=== PATIENT | male | born 1980 | race Caucasian/White ===

== ENCOUNTER 2022-01-20 16:03 | Emergency (ER) | payer MEDICAID ==
[~2022-01-20] VITALS: Ht 193 cm; Wt 108.0 kg
[2022-01-20] MEDS ORDERED: ABIL1TAB12 PO (16:22)
[2022-01-20] MEDS ORDERED: ADDE1TAB14 PO (16:22)
[2022-01-20] MEDS ORDERED: CLONI1TA PO (16:22)
[2022-01-20] MEDS ORDERED: PROZ40CA PO (16:22)
[2022-01-21] MEDS ORDERED: FLUoxetine 20MG CAP PO ONE (00:30)
[2022-01-21] MEDS ORDERED: ARIPiprazole 10 MG TAB PO ONE (00:30)
[2022-01-21] MEDS ORDERED: ADDERALL 5 MG TAB PO ONE ×2 (00:30→01:00)
[2022-01-21] MEDS ORDERED: cloNIDine 0.1MG TABLET PO ONE (00:30)
[2022-01-21] MEDS ORDERED: FLUO40CA PO (01:04)
[2022-01-21] MEDS ORDERED: CLONI1TA PO (01:04)
[2022-01-21] MEDS ORDERED: ADDE1TAB14 PO (01:04)
[2022-01-21] MEDS ORDERED: ABIL1TAB12 PO (01:04)
[2022-01-21] MEDS ORDERED: PRED20TA PO (01:08)
[2022-01-21 01:26] VITALS: BP 125/85
== END 2022-01-21 01:28 | disposition home or self-care (01) ==
LOC: M ED 16:03
DX: Z76.0 Encounter for issue of repeat prescription (principal); R21 Rash and other nonspecific skin eruption; F41.9 Anxiety disorder, unspecified; F32.A Depression, unspecified; F31.9 Bipolar disorder, unspecified; F90.9 Attention-deficit hyperactivity disorder, unspecified type; F43.10 Post-traumatic stress disorder, unspecified; F17.200 Nicotine dependence, unspecified, uncomplicated; Z86.73 Personal history of transient ischemic attack (TIA), and cerebral infarction without residual deficits; Z79.811 Long term (current) use of aromatase inhibitors; Z79.899 Other long term (current) drug therapy

== ENCOUNTER 2022-02-14 13:38 | Emergency (ER) | payer MEDICAID ==
[~2022-02-14] VITALS: Ht 193 cm; Wt 105.9 kg
[~2022-02-14 13:38] MED LIST: ABIL1TAB12 PO; ADDE1TAB14 PO; CLONI1TA PO; FLUO40CA PO; PRED20TA PO; PROZ40CA PO
[2022-02-14] MEDS ORDERED: MIRT-60 PO (13:46)
[2022-02-14] MEDS ORDERED: cloNIDine 0.1MG TABLET PO ONE (20:10)
[2022-02-14] MEDS ORDERED: ADDERALL 5 MG TAB PO ONE (20:10)
[2022-02-14] MEDS ORDERED: ARIPiprazole 10 MG TAB PO ONE (20:10)
[2022-02-14 20:23] VITALS: BP 128/84
[2022-02-14] MEDS ORDERED: CLONI1TA PO (20:24)
[2022-02-14] MEDS ORDERED: ADDE20CA3 PO (20:24)
[2022-02-14] MEDS ORDERED: MIRT1TAB16 PO (20:24)
[2022-02-14] MEDS ORDERED: ABIL1TAB12 PO (20:24)
[2022-02-14] MEDS ORDERED: FLUO40CA PO (20:24)
[2022-02-14 20:35] VITALS: BP 131/65
== END 2022-02-14 20:37 | disposition home or self-care (01) ==
LOC: M ED 13:38
DX: Z76.0 Encounter for issue of repeat prescription (principal); I10 Essential (primary) hypertension; F41.9 Anxiety disorder, unspecified; F31.9 Bipolar disorder, unspecified; Z86.73 Personal history of transient ischemic attack (TIA), and cerebral infarction without residual deficits; Z87.891 Personal history of nicotine dependence; Z79.811 Long term (current) use of aromatase inhibitors; Z79.83 Long term (current) use of bisphosphonates; Z79.899 Other long term (current) drug therapy

== ENCOUNTER 2022-02-25 00:22 | Emergency (ER) | payer MEDICAID, OTHER ==
[~2022-02-25 00:22] MED LIST changes: +ADDE20CA3 PO; +MIRT-60 PO; +MIRT1TAB16 PO
[2022-02-25 01:05] LABS: HEMATOCRIT 49.6 % (42.0-52.0); HEMOGLOBIN 17.3 g/dl (13.5-17.5); MEAN CORPUSCULAR HEMOGLOBIN 32.3 pg (27.0-33.0); MEAN CORPUSCULAR HGB CONC 34.9 g/dl (32.0-36.5); MEAN CORPUSCULAR VOLUME 92.7 fl (80.0-96.0); PLATELET COUNT, AUTOMATED 251 10^3/uL (150-450); RED BLOOD COUNT 5.35 10^6/uL (4.30-6.10); WHITE BLOOD COUNT 9.3 10^3/uL (4.0-10.0)
[2022-02-25 01:27] LABS: AMPHETAMINES LEVEL URINE NEGATIVE (NEGATIVE); BARBITURATES URINE NEGATIVE (NEGATIVE); BENZODIAZEPINES URINE NEGATIVE (NEGATIVE); COCAINE METABOLITE URINE NEGATIVE (NEGATIVE); METHADONE URINE NEGATIVE (NEGATIVE); OPIATES URINE NEGATIVE (NEGATIVE); PHENCYCLIDINE URINE NEGATIVE (NEGATIVE)
[2022-02-25 01:28] LABS: CANNABINOIDS URINE NEGATIVE (NEGATIVE)
[2022-02-25 01:29] LABS: ETHYL ALCOHOL (ETHANOL) 0.169 % (0.000-0.010)
[2022-02-25 01:30] LABS: BILIRUBIN,DIRECT < 0.1 MG/DL (<0.4)
[2022-02-25 01:31] LABS: ACETAMINOPHEN LEVEL < 2.0 UG/ML (10.0-20.0); ALBUMIN 3.7 G/DL (3.2-5.2); ALKALINE PHOSPHATASE 90 U/L (46-116); ALT/SGPT 39 U/L (7.0-40); AST/SGOT 20 U/L (<34); BILIRUBIN,TOTAL 0.2 MG/DL (0.3-1.2); BLOOD UREA NITROGEN 17 MG/DL (9-23); CALCIUM LEVEL 8.4 MG/DL (8.5-10.1); CARBON DIOXIDE LEVEL 24 MMOL/L (20-31); CHLORIDE LEVEL 107 MMOL/L (98-107); CREATININE FOR GFR 0.89 MG/DL (0.70-1.30); GLOMERULAR FILTRATION RATE > 60.0 (>60); GLUCOSE, FASTING 126 MG/DL (60-100); SALICYLATE LEVEL < 3.0 MG/DL (<30); SODIUM LEVEL 141 MMOL/L (136-145); TOTAL PROTEIN 6.9 G/DL (5.7-8.2)
[2022-02-25 01:38] LABS: THYROID STIMULATING HORMONE 1.753 uIU/ML (0.55-4.78)
[2022-02-25] MEDS ORDERED: CLONI1TA PO (07:21)
[2022-02-25] MEDS ORDERED: ADDE20CA3 PO (07:21)
[2022-02-25 07:43] VITALS: BP 118/80
== END 2022-02-25 07:49 | disposition home or self-care (01) ==
LOC: M ED 00:22
DX: F43.0 Acute stress reaction (principal); Z76.0 Encounter for issue of repeat prescription; F31.9 Bipolar disorder, unspecified; F43.10 Post-traumatic stress disorder, unspecified; F90.9 Attention-deficit hyperactivity disorder, unspecified type; F17.200 Nicotine dependence, unspecified, uncomplicated; F10.10 Alcohol abuse, uncomplicated; Z79.811 Long term (current) use of aromatase inhibitors; Z79.83 Long term (current) use of bisphosphonates; Z79.899 Other long term (current) drug therapy

== ENCOUNTER 2022-10-18 17:41 | Emergency (ER) | payer MEDICAID, OTHER ==
[~2022-10-18] VITALS: Ht 190.5 cm; Wt 106.8 kg
[2022-10-18] MEDS ORDERED: ONDANSETRON 4MG ORAL DISINTEGRATING TAB PO PRN (17:55)
[2022-10-18] MEDS ORDERED: NS 1,000 ML IV ONE (17:55)
[2022-10-18] MEDS ORDERED: LORazepam 2 MG TAB PO PRN (17:55)
[2022-10-18] MEDS ORDERED: THIAMINE 200MG 2ML VIAL IM ONE (17:55)
[2022-10-18 18:25] LABS: HEMATOCRIT 52.9 % (42.0-52.0); MEAN CORPUSCULAR HEMOGLOBIN 32.1 pg (27.0-33.0); MEAN CORPUSCULAR HGB CONC 35.9 g/dl (32.0-36.5); MEAN CORPUSCULAR VOLUME 89.4 fl (80.0-96.0); PLATELET COUNT, AUTOMATED 206 10^3/uL (150-450); RED BLOOD COUNT 5.92 10^6/uL (4.30-6.10); WHITE BLOOD COUNT 8.7 10^3/uL (4.0-10.0)
[2022-10-18 18:38] LABS: AMPHETAMINES LEVEL URINE NEGATIVE (NEGATIVE); BARBITURATES URINE NEGATIVE (NEGATIVE); CANNABINOIDS URINE NEGATIVE (NEGATIVE); COCAINE METABOLITE URINE NEGATIVE (NEGATIVE); METHADONE URINE NEGATIVE (NEGATIVE); PHENCYCLIDINE URINE NEGATIVE (NEGATIVE)
[2022-10-18 18:39] LABS: BENZODIAZEPINES URINE NEGATIVE (NEGATIVE); OPIATES URINE NEGATIVE (NEGATIVE)
[2022-10-18 18:42] LABS: ACETAMINOPHEN LEVEL < 2.0 UG/ML (10.0-20.0); ALBUMIN 4.1 G/DL (3.2-5.2); ALKALINE PHOSPHATASE 100 U/L (46-116); ALT/SGPT 42 U/L (7.0-40); AST/SGOT 26 U/L (<34); BILIRUBIN,DIRECT 0.1 MG/DL (<0.4); BILIRUBIN,TOTAL 0.5 MG/DL (0.3-1.2); BLOOD UREA NITROGEN 15 MG/DL (9-23); CALCIUM LEVEL 8.4 MG/DL (8.5-10.1); CARBON DIOXIDE LEVEL 24 MMOL/L (20-31); CHLORIDE LEVEL 104 MMOL/L (98-107); GLOMERULAR FILTRATION RATE > 60.0 (>60); GLUCOSE, FASTING 144 MG/DL (60-100); POTASSIUM SERUM 3.8 MMOL/L (3.5-5.1); SALICYLATE LEVEL < 3.0 MG/DL (<30); SODIUM LEVEL 137 MMOL/L (136-145)
[2022-10-18 18:45] LABS: THYROID STIMULATING HORMONE 2.494 uIU/ML (0.55-4.78)
[2022-10-18 20:15] VITALS: TEMP 97.4
[2022-10-18] MEDS ORDERED: THIAMINE 100 MG TAB PO SCH (21:00)
[2022-10-18 21:30] VITALS: O2SAT 98
[2022-10-18] MEDS ORDERED: OXAZ30CA2 PO (21:30)
[2022-10-18 21:44] VITALS: BP 145/90
[2022-10-19] MEDS ORDERED: FOLIC ACID 1MG TAB PO SCH (09:00)
[2022-10-19] MEDS ORDERED: MULTIVITAMINS/MINERALS THERAP 1 TAB PO SCH (09:00)
== END 2022-10-18 22:16 | disposition home or self-care (01) ==
LOC: M ED 17:41 → EDBD 17:41 → M ED 22:16
DX: F10.129 Alcohol abuse with intoxication, unspecified (principal); F90.9 Attention-deficit hyperactivity disorder, unspecified type; F31.9 Bipolar disorder, unspecified; Z86.79 Personal history of other diseases of the circulatory system; Z86.73 Personal history of transient ischemic attack (TIA), and cerebral infarction without residual deficits; Z79.83 Long term (current) use of bisphosphonates; Z79.810 Long term (current) use of selective estrogen receptor modulators (SERMs); Z79.899 Other long term (current) drug therapy
CPT/HCPCS: 36415; 80048; 80076; 80143; 80307; 82077; 84443; 85027; 87635; 96372; 99284; J3411

== ENCOUNTER → 2024-07-10 | Outpatient (CLI) | payer OTHER ==
[~2024-07-10] MED LIST changes: +CELE1CAP99; +CLON1TAB8; +GABA-1635; +MELO7.5T35 PO; +METF500T13; +METO1TAB32; -MIRT-60 PO; +MIRT-89 PO; +OXAZ30CA2 PO; +QUET300T2
[2024-07-10 18:20] LABS: HEMATOCRIT 53.6 % (42.0-52.0); HEMOGLOBIN 17.8 g/dl (13.5-17.5); MEAN CORPUSCULAR HEMOGLOBIN 28.3 pg (27.0-33.0); MEAN CORPUSCULAR HGB CONC 33.2 g/dl (32.0-36.5); MEAN CORPUSCULAR VOLUME 85.4 fl (80.0-96.0); PLATELET COUNT, AUTOMATED 256 10^3/uL (150-450); RED BLOOD COUNT 6.28 10^6/uL (4.30-6.10); WHITE BLOOD COUNT 7.2 10^3/uL (4.0-10.0)
[2024-07-10 18:33] LABS: APPEARANCE, URINE CLOUDY (CLEAR); BACTERIA, URINE AUTO NEGATIVE (NEGATIVE); BILIRUBIN, URINE AUTO NEGATIVE (NEGATIVE); BLOOD, URINE BLOOD NEGATIVE (NEGATIVE); CALCIUM OXALATE CRYSTALS SMALL; COLOR, URINE YELLOW (YELLOW); GLUCOSE, URINE (UA) AUTO 3+ mg/dL (NEGATIVE); KETONE, URINE AUTO NEGATIVE (NEGATIVE); LEUKOCYTE ESTERASE, URINE AUTO NEGATIVE (NEGATIVE); MUCUS, URINE SMALL (NEGATIVE); NITRITE, URINE AUTO NEGATIVE (NEGATIVE); PROTEIN, URINE AUTO NEGATIVE (NEGATIVE); RBC, URINE AUTO 0 /HPF (0-3); SPECIFIC GRAVITY URINE AUTO 1.028 (1.002-1.035); SQUAMOUS EPITHELIAL CELL UR AU 1 /HPF (0-6); UROBILINOGEN, URINE AUTO 0.2 mg/dL (0.0-2.0); WBC, URINE AUTO 0 /HPF (0-3)
[2024-07-10 18:45] LABS: ALBUMIN 3.7 G/DL (3.2-5.2); ALKALINE PHOSPHATASE 91 U/L (40-129); ALT/SGPT 34 U/L (7.0-40); AST/SGOT 16 U/L (<34); BILIRUBIN,TOTAL 0.2 MG/DL (0.3-1.2); BLOOD UREA NITROGEN 14 MG/DL (9-23); CARBON DIOXIDE LEVEL 28 MMOL/L (20-31); CHLORIDE LEVEL 104 MMOL/L (98-107); CHOLESTEROL LEVEL 145 MG/DL (<200); CHOLESTEROL RISK RATIO 4.91 (<5); CREATININE FOR GFR 0.66 MG/DL (0.70-1.30); GLOMERULAR FILTRATION RATE > 90.0 (>60); GLUCOSE, FASTING 217 MG/DL (60-100); HDL CHOLESTEROL 29.5 MG/DL (>40); HEPATITIS B SURFACE ANTIBODY NEGATIVE (POSITIVE); NON-HDL-C 115.5 MG/DL; PHOSPHORUS LEVEL 3.2 MG/DL (2.5-4.9); POTASSIUM SERUM 4.4 MMOL/L (3.5-5.1); SODIUM LEVEL 140 MMOL/L (136-145); THYROID STIMULATING HORMONE 2.396 uIU/ML (0.55-4.78); TOTAL PROTEIN 6.9 G/DL (5.7-8.2); TRIGLYCERIDES LEVEL 440 MG/DL (<150)
[2024-07-10 18:46] LABS: TOTAL 25(OH) VITAMIN D 26.6 NG/ML (20.0-100.0); VITAMIN B12 LEVEL 646 PG/ML (211-911)
[2024-07-10 18:56] LABS: HEPATITIS B SURFACE ANTIGEN NEGATIVE (NEGATIVE)
[2024-07-10 19:03] LABS: HEMOGLOBIN A1c 8.3 % (4.0-6.0)
[2024-07-10 19:09] LABS: HIV 1&2 SCREEN NEGATIVE (NEGATIVE)
[2024-07-10 19:17] LABS: HEPATITIS C VIRUS ABY INDEX 0.03 INDEX (<0.8)
[2024-07-10 19:18] LABS: FOLATE 13.3 NG/ML (>5.4)
[2024-07-10 19:29] LABS: Trichomonas vaginalis (AMP) NOT DETECTED (NEGATIVE)
[2024-07-10 19:53] LABS: GC DNA AMPLIFICATION NEGATIVE (NEGATIVE)
== END ==
LOC: M PLALAB 14:44
PROVIDERS: ATTEND Family Medicine
DX: Z00.01 Encounter for general adult medical examination with abnormal findings (principal); G89.29 Other chronic pain; I67.9 Cerebrovascular disease, unspecified; Z89.512 Acquired absence of left leg below knee; I10 Essential (primary) hypertension; E11.65 Type 2 diabetes mellitus with hyperglycemia; R53.83 Other fatigue; Z13.9 Encounter for screening, unspecified

== ENCOUNTER 2024-10-27 18:35 | Inpatient (IN) | payer OTHER ==
[~2024-10-27 18:35] MED LIST changes: -CLON1TAB8; +CLON1TAB8 PO; -GABA-1635; +GABA-1635 PO; -METO1TAB32; +METO1TAB32 PO; -QUET300T2; +QUET300T2 PO
[2024-10-27] MEDS: NS 500 ML IV ONE (19:00)
[2024-10-27 20:03] LABS: VENOUS BASE EXCESS -1.5 (-2.0-2.0); VENOUS HCO3 20.9 MMOL/L (23.0-27.0); VENOUS O2 SATURATION 98.1 % (60.0-80.0); VENOUS PARTIAL PRESSURE CO2 30.7 mmHg (38.0-50.0); VENOUS PARTIAL PRESSURE O2 105.7 mmHg (30.0-50.0); VENOUS PH 7.450 UNITS (7.330-7.430); VENOUS STANDARD HCO3 23.3 MMOL/L; VENOUS TOTAL CO2 21.8 MMOL/L (24.0-28.0)
[2024-10-27] MEDS ORDERED: SEMA0.257 SC (20:07)
[2024-10-27] MEDS ORDERED: ATOR40TA75 PO (20:07)
[2024-10-27] MEDS ORDERED: METF10004 PO (20:07)
[2024-10-27] MEDS ORDERED: TOPI-256 PO (20:07)
[2024-10-27] MEDS ORDERED: ADDE20TA PO (20:07)
[2024-10-27] MEDS ORDERED: FLUO40CA PO (20:12)
[2024-10-27] MEDS ORDERED: MED REC COMMENT (20:13)
[2024-10-27 20:15] LABS: PLATELET COUNT, AUTOMATED 290 10^3/uL (150-450)
[2024-10-27] MEDS ORDERED: HOME MED LIST COMPLETE! XX SCH (20:15)
[2024-10-27 20:34] LABS: CANNABINOIDS URINE NEGATIVE (NEGATIVE); METHADONE URINE NEGATIVE (NEGATIVE); OPIATES URINE NEGATIVE (NEGATIVE)
[2024-10-27 20:35] LABS: AMPHETAMINES LEVEL URINE POSITIVE (NEGATIVE); BARBITURATES URINE NEGATIVE (NEGATIVE); BENZODIAZEPINES URINE NEGATIVE (NEGATIVE); COCAINE METABOLITE URINE NEGATIVE (NEGATIVE); PHENCYCLIDINE URINE NEGATIVE (NEGATIVE)
[2024-10-27 21:02] LABS: ATYPICAL LYMPH 28 % (0-5); EOSINOPHILS 3 % (0-3); LYMPHOCYTES 30 % (16-44); MONOCYTES 5 % (0-5); NEUTROPHILS 34 % (28-66)
[2024-10-27 21:03] LABS: PLATELET ESTIMATE NORMAL (NORMAL)
[2024-10-27] MEDS: NS (Normal Saline) 0.9% 1,000 ML IV ONE (22:30)
[2024-10-27 22:33] LABS: ETHYL ALCOHOL (ETHANOL) 0.245 % (0.000-0.010)
[2024-10-27 22:35] LABS: ALT/SGPT 28 U/L (7.0-40); AST/SGOT 19 U/L (<34); CALCIUM LEVEL 8.6 MG/DL (8.5-10.1); CARBON DIOXIDE LEVEL 23 MMOL/L (20-31); CHLORIDE LEVEL 106 MMOL/L (98-107); CPK CREATINE PHOSPHOKINASE 35 U/L (46-171); CREATININE FOR GFR 0.74 MG/DL (0.70-1.30); GLOMERULAR FILTRATION RATE > 90.0 (>60); POTASSIUM SERUM 3.8 MMOL/L (3.5-5.1); SALICYLATE LEVEL < 3.0 MG/DL (<30); SODIUM LEVEL 145 MMOL/L (136-145)
[2024-10-28] MEDS: NS (Normal Saline) 0.9% 1,000 ML IV ONE (02:45)
[2024-10-28] MEDS: THIAMINE 100 MG TAB PO SCH ×2 (09:17→20:48)
[2024-10-28] MEDS: MULTIVITAMINS/MINERALS THERAP 1 TAB PO SCH (09:17)
[2024-10-28] MEDS: FOLIC ACID 1 MG TAB PO SCH (09:17)
[2024-10-28] MEDS ORDERED: MOM 30 ML SUSPENSION UDC PO PRN (13:15)
[2024-10-28] MEDS ORDERED: MAALOX 30 ML SUSP *UDC PO PRN (13:15)
[2024-10-28] MEDS ORDERED: IBUPROFEN 400 MG TAB PO PRN (13:15)
[2024-10-28 15:44] VITALS: BP 123/90
[2024-10-28] MEDS: ATORVASTATIN 20 MG TAB PO SCH (16:42)
[2024-10-28] MEDS: FLUoxetine 20 MG CAP PO SCH (16:42)
[2024-10-28] MEDS: GABAPENTIN 400 MG CAP PO SCH (16:43)
[2024-10-28] MEDS: TOPIRAMATE 25 MG TAB PO SCH (16:43)
[2024-10-28] MEDS: METOPROLOL SUCC. 25 MG *XL* TAB PO SCH (16:57)
[2024-10-29 06:19] VITALS: BP 122/87; TEMP 96.4; O2SAT 98
[2024-10-29] MEDS: FOLIC ACID 1 MG TAB PO SCH (08:27)
[2024-10-29] MEDS: MULTIVITAMINS/MINERALS THERAP 1 TAB PO SCH (08:27)
[2024-10-29] MEDS: NICOTINE 21 MG/24 HR 1 EA TRANSDERMAL TD SCH (08:53)
[2024-10-29] MEDS: OLANZapine ORAL DISINTEGRATING TAB 5MG PO PRN ×2 (09:53→20:36)
[2024-10-29] MEDS ORDERED: ENTER DRUG NAME HERE (PATIENT'S OWN MED) SC SCH (11:40)
[2024-10-29] MEDS ORDERED: GLUCAGON INJ 1 MG VIAL SC PRN (11:40)
[2024-10-29] MEDS ORDERED: GLUCOSE 4 GM CHEW PO PRN (11:40)
[2024-10-29] MEDS ORDERED: DEXTROSE 50% 50 ML SYRINGE IV PRN (11:40)
[2024-10-29] MEDS: INSULIN LISPRO (NovoLOG) PER UNIT SC SCH ×2 (11:55→20:32)
[2024-10-29 11:56] LABS: BASO # 0.1 10^3/uL (0.0-0.2); BASO % 0.7 % (0.0-1.0); EOS # 0.2 10^3/uL (0.0-0.5); EOS % 1.7 % (0.0-3.0); LYMPH # 3.8 10^3/uL (1.5-5.0); LYMPH % 43.3 % (24.0-44.0); MONO # 0.7 10^3/uL (0.0-0.8); MONO % 8.4 % (2.0-8.0); NEUTROPHILS # 4.0 10^3/uL (1.5-8.5); NEUTROPHILS % 45.7 % (36.0-66.0); PLATELET COUNT, AUTOMATED 236 10^3/uL (150-450)
[2024-10-29] MEDS: OLANZapine ORAL DISINTEGRATING TAB 5MG PO ONE (12:03)
[2024-10-29 12:19] LABS: CALCIUM LEVEL 9.5 MG/DL (8.5-10.1); CARBON DIOXIDE LEVEL 24 MMOL/L (20-31); CHLORIDE LEVEL 104 MMOL/L (98-107); CREATININE FOR GFR 0.73 MG/DL (0.70-1.30); GLOMERULAR FILTRATION RATE > 90.0 (>60); POTASSIUM SERUM 4.0 MMOL/L (3.5-5.1); SODIUM LEVEL 143 MMOL/L (136-145)
[2024-10-29 14:00] VITALS: BP 127/78
[2024-10-29 14:07] LABS: ESTIMATED AVERAGE GLUCOSE 197.0 MG/DL (60-110)
[2024-10-29 15:23] VITALS: BP 127/78; TEMP 97.1; O2SAT 95
[2024-10-29 22:07] VITALS: BP 100/62
[2024-10-30 06:53] VITALS: BP 118/61
[2024-10-30 06:55] VITALS: BP 118/61; TEMP 97.3; O2SAT 96
[2024-10-30 08:03] LABS: CHOLESTEROL LEVEL 85 MG/DL (<200); CHOLESTEROL RISK RATIO 2.66 (<5); NON-HDL-C 53.1 MG/DL; TRIGLYCERIDES LEVEL 305 MG/DL (<150)
[2024-10-30] MEDS: HALOPERIDOL 5 MG TAB PO PRN (09:37)
[2024-10-30 14:00] VITALS: BP 103/58
[2024-10-30 15:01] VITALS: BP 103/58; TEMP 96.7; O2SAT 96
[2024-10-30] MEDS: ACETAMINOPHEN 325 MG TAB PO PRN (16:42)
[2024-10-30] MEDS: traZODone 50 MG TAB PO PRN (20:24)
[2024-10-30 22:00] VITALS: BP 108/65
[2024-10-31 06:50] VITALS: BP 112/68; TEMP 97.1; O2SAT 100
[2024-10-31 08:24] VITALS: BP 121/74
[2024-10-31 08:27] VITALS: BP 112/68
[2024-10-31] MEDS ORDERED: HALO5TAB33 PO ×2 (08:40→09:38)
== END 2024-10-31 13:17 | disposition home or self-care (01) | DRG 753 ==
LOC: M ED 18:35 → M ED INP 10-28 13:13 → M PSY 10-28 15:01
PROVIDERS: ADMIT General Practice; ATTEND General Practice
DX: F31.9 Bipolar disorder, unspecified (principal); E87.20 Acidosis, unspecified; R45.851 Suicidal ideations; E11.9 Type 2 diabetes mellitus without complications; F10.220 Alcohol dependence with intoxication, uncomplicated; F60.89 Other specific personality disorders; E78.5 Hyperlipidemia, unspecified; I10 Essential (primary) hypertension; F43.10 Post-traumatic stress disorder, unspecified; F90.9 Attention-deficit hyperactivity disorder, unspecified type; F17.290 Nicotine dependence, other tobacco product, uncomplicated; G89.29 Other chronic pain; Z79.84 Long term (current) use of oral hypoglycemic drugs; Z79.899 Other long term (current) drug therapy; Z91.51 Personal history of suicidal behavior; Z89.511 Acquired absence of right leg below knee; Z89.512 Acquired absence of left leg below knee; Z86.73 Personal history of transient ischemic attack (TIA), and cerebral infarction without residual deficits

== ENCOUNTER 2024-11-13 15:20 | Inpatient (IN) | payer MEDICAID, OTHER ==
[~2024-11-13] VITALS: Ht 165.1 cm; Wt 97.0 kg
[~2024-11-13 15:20] MED LIST changes: +ADDE20TA PO; +ATOR40TA75 PO; +HALO5TAB33 PO; +MED REC COMMENT; +METF10004 PO; +SEMA0.257 SC; +TOPI-256 PO
[2024-11-13 16:44] LABS: PLATELET COUNT, AUTOMATED 271 10^3/uL (150-450)
[2024-11-13 17:13] LABS: BARBITURATES URINE NEGATIVE (NEGATIVE); BENZODIAZEPINES URINE NEGATIVE (NEGATIVE); COCAINE METABOLITE URINE NEGATIVE (NEGATIVE); ETHYL ALCOHOL (ETHANOL) < 0.003 % (0.000-0.010); METHADONE URINE NEGATIVE (NEGATIVE); OPIATES URINE NEGATIVE (NEGATIVE); PHENCYCLIDINE URINE NEGATIVE (NEGATIVE)
[2024-11-13 17:15] LABS: ALT/SGPT 26 U/L (7.0-40); AST/SGOT 18 U/L (<34); CALCIUM LEVEL 9.7 MG/DL (8.5-10.1); CARBON DIOXIDE LEVEL 22 MMOL/L (20-31); CHLORIDE LEVEL 102 MMOL/L (98-107); CREATININE FOR GFR 0.67 MG/DL (0.70-1.30); GLOMERULAR FILTRATION RATE > 90.0 (>60); POTASSIUM SERUM 4.0 MMOL/L (3.5-5.1); SALICYLATE LEVEL < 3.0 MG/DL (<30); SODIUM LEVEL 139 MMOL/L (136-145)
[2024-11-13 17:20] LABS: AMPHETAMINES LEVEL URINE POSITIVE (NEGATIVE); CANNABINOIDS URINE POSITIVE (NEGATIVE)
[2024-11-13] MEDS ORDERED: MAALOX 30 ML SUSP *UDC PO PRN (18:50)
[2024-11-13] MEDS: ACETAMINOPHEN 325 MG TAB PO PRN (19:33)
[2024-11-13] MEDS: IBUPROFEN 400 MG TAB PO PRN (19:35)
[2024-11-13] MEDS ORDERED: ELIQ5TAB PO (20:07)
[2024-11-13] MEDS ORDERED: CELE1CAP99 PO (20:07)
[2024-11-13] MEDS ORDERED: HOME MED LIST COMPLETE! XX SCH (20:25)
[2024-11-13 20:30] VITALS: BP 130/101; TEMP 97.3; O2SAT 96
[2024-11-13 21:01] VITALS: BP 130/101; TEMP 97.3; O2SAT 96
[2024-11-13] MEDS: clonazePAM 1 MG TAB PO PRN (21:52)
[2024-11-14 06:49] VITALS: BP 117/70; TEMP 97; O2SAT 98
[2024-11-14] MEDS: GABAPENTIN 400 MG CAP PO SCH (09:09)
[2024-11-14] MEDS: FLUoxetine 20 MG CAP PO SCH (09:10)
[2024-11-14] MEDS: APIXABAN 5 MG TAB PO SCH (09:10)
[2024-11-14] MEDS: ATORVASTATIN 20 MG TAB PO SCH (09:10)
[2024-11-14] MEDS: TOPIRAMATE 25 MG TAB PO SCH ×2 (09:11→20:22)
[2024-11-14] MEDS: METOPROLOL SUCC. 25 MG *XL* TAB PO SCH (09:12)
[2024-11-14] MEDS: PERCOCET 5MG/325MG TAB PO PRN (11:29)
[2024-11-14 15:00] VITALS: BP 128/83; TEMP 97.2; O2SAT 95
[2024-11-14] MEDS: GABAPENTIN 100 MG CAP PO SCH (15:32)
[2024-11-14] MEDS: GABAPENTIN 300 MG CAP PO SCH (15:32)
[2024-11-14] MEDS ORDERED: GABAPENTIN 400 MG CAP PO SCH (16:00)
[2024-11-14] MEDS: traZODone 50 MG TAB PO PRN (20:21)
[2024-11-15 06:34] VITALS: BP 105/59; TEMP 97.2; O2SAT 95
[2024-11-15] MEDS: FLUoxetine 20 MG CAP PO SCH (08:20)
[2024-11-15] MEDS: NICOTINE POLACRILEX 2 MG GUM PO PRN (11:46)
[2024-11-15 17:02] VITALS: BP 119/69; TEMP 98.3; O2SAT 95
[2024-11-16 06:29] VITALS: BP 109/56; TEMP 97.9; O2SAT 98
[2024-11-16 15:35] VITALS: BP 118/71; TEMP 97.6; O2SAT 95
[2024-11-16] MEDS: MOM 30 ML SUSPENSION UDC PO PRN (15:38)
[2024-11-17 06:30] VITALS: BP 145/58; TEMP 96.7; O2SAT 95
[2024-11-17 09:11] VITALS: BP 103/55
[2024-11-17 11:13] VITALS: BP 109/70
[2024-11-17 14:51] VITALS: BP 131/72; TEMP 98.7; O2SAT 95
[2024-11-17] MEDS: ACETAMINOPHEN 500 MG TAB PO SCH (15:28)
[2024-11-18 06:38] VITALS: BP 118/84; TEMP 97; O2SAT 96
[2024-11-18 09:38] VITALS: BP 106/61
[2024-11-18] MEDS: QUEtiapine FUMARATE 50MG TAB PO SCH (09:43)
[2024-11-18 15:16] VITALS: BP 115/75; TEMP 97.9; O2SAT 95
[2024-11-19 06:25] VITALS: BP 125/77; TEMP 97.7; O2SAT 96
[2024-11-19 08:05] VITALS: BP 126/65
[2024-11-19] MEDS: FUROSEMIDE 20 MG TAB PO SCH (12:41)
[2024-11-19 16:29] VITALS: BP 115/65; TEMP 97.7; O2SAT 96
[2024-11-19] MEDS ORDERED: QUET50TA4 PO (18:49)
[2024-11-19] MEDS ORDERED: FLUO-365 PO (18:49)
[2024-11-19] MEDS: LACTULOSE 20 GM/30 ML SYRUP UDC PO ONE (18:49)
[2024-11-19] MEDS ORDERED: METH-1165 PO (18:49)
[2024-11-19] MEDS ORDERED: CELE100C PO (18:49)
[2024-11-19] MEDS ORDERED: FURO20TA2 PO (18:49)
[2024-11-19] MEDS ORDERED: QUET300T2 PO (18:49)
[2024-11-19] MEDS ORDERED: TOPA1TAB PO (18:49)
[2024-11-19] MEDS ORDERED: GABA-1172 PO (18:49)
[2024-11-20 06:25] VITALS: BP 125/70; TEMP 97.1; O2SAT 95
[2024-11-20 08:04] VITALS: BP 128/60
[2024-11-20] MEDS ORDERED: OZEMPIC SC SCH (09:00)
[2024-11-20] MEDS ORDERED: CLON1TAB8 PO (09:14)
== END 2024-11-20 10:50 | disposition home or self-care (01) | DRG 753 ==
LOC: M ED 15:20 → M ED INP 18:50 → M PSY 20:35
PROVIDERS: ADMIT Psychiatry & Neurology Neurology; ATTEND Psychiatry & Neurology Neurology
DX: F31.63 Bipolar disorder, current episode mixed, severe, without psychotic features (principal); F41.1 Generalized anxiety disorder; F60.2 Antisocial personality disorder; F15.90 Other stimulant use, unspecified, uncomplicated; E78.5 Hyperlipidemia, unspecified; E11.9 Type 2 diabetes mellitus without complications; I10 Essential (primary) hypertension; Z89.511 Acquired absence of right leg below knee; Z89.512 Acquired absence of left leg below knee; F43.10 Post-traumatic stress disorder, unspecified; R45.851 Suicidal ideations; F12.90 Cannabis use, unspecified, uncomplicated; F10.20 Alcohol dependence, uncomplicated; R45.850 Homicidal ideations; G89.29 Other chronic pain; Z79.899 Other long term (current) drug therapy; F63.81 Intermittent explosive disorder

== ENCOUNTER → 2025-02-02 | Outpatient (CLI) | payer MEDICAID, OTHER ==
[~2025-02-02] MED LIST changes: +CELE100C PO; +CELE1CAP99 PO; +ELIQ5TAB PO; +FLUO-365 PO; +FURO20TA2 PO; +GABA-1172 PO; +METH-1165 PO; +QUET50TA4 PO; +TOPA1TAB PO
== END ==
LOC: M RAD 06:35
PROVIDERS: ATTEND Nurse Practitioner Adult Health
DX: M54.16 Radiculopathy, lumbar region (principal)

== ENCOUNTER 2025-02-06 14:58 | Observation (INO) | payer OTHER ==
[2025-02-06] MEDS ORDERED: ISOVUE-370 76% 100 ML VIAL As Ordered ONE (15:48)
[2025-02-06 16:10] LABS: BASO # 0.0 10^3/uL (0.0-0.2); BASO % 0.5 % (0.0-1.0); EOS # 0.2 10^3/uL (0.0-0.5); EOS % 2.6 % (0.0-3.0); LYMPH # 2.3 10^3/uL (1.5-5.0); LYMPH % 38.1 % (24.0-44.0); MONO # 0.7 10^3/uL (0.0-0.8); MONO % 11.5 % (2.0-8.0); NEUTROPHILS # 2.9 10^3/uL (1.5-8.5); NEUTROPHILS % 47.0 % (36.0-66.0); PLATELET COUNT, AUTOMATED 228 10^3/uL (150-450)
[2025-02-06 16:30] LABS: ETHYL ALCOHOL (ETHANOL) < 0.003 % (0.000-0.010)
[2025-02-06 16:33] LABS: INR 0.87
[2025-02-06 16:46] LABS: ALT/SGPT 41 U/L (7.0-40); AST/SGOT 22 U/L (<34); CALCIUM LEVEL 8.9 MG/DL (8.5-10.1); CARBON DIOXIDE LEVEL 26 MMOL/L (20-31); CHLORIDE LEVEL 102 MMOL/L (98-107); CREATININE FOR GFR 0.72 MG/DL (0.70-1.30); GLOMERULAR FILTRATION RATE > 90.0 (>60); POTASSIUM SERUM 4.4 MMOL/L (3.5-5.1); SODIUM LEVEL 139 MMOL/L (136-145)
[2025-02-06 16:57] VITALS: TEMP 98.8
[2025-02-06] MEDS ORDERED: GLUCAGON INJ 1 MG VIAL SC PRN (17:55)
[2025-02-06] MEDS ORDERED: DEXTROSE 50% 50 ML SYRINGE IV PRN (17:55)
[2025-02-06] MEDS ORDERED: GLUCOSE 4 GM CHEW PO PRN (17:55)
[2025-02-06 18:01] LABS: AMPHETAMINES LEVEL URINE NEGATIVE (NEGATIVE); BARBITURATES URINE NEGATIVE (NEGATIVE); BENZODIAZEPINES URINE NEGATIVE (NEGATIVE); COCAINE METABOLITE URINE NEGATIVE (NEGATIVE); METHADONE URINE NEGATIVE (NEGATIVE)
[2025-02-06 18:02] LABS: CANNABINOIDS URINE NEGATIVE (NEGATIVE); OPIATES URINE NEGATIVE (NEGATIVE); PHENCYCLIDINE URINE NEGATIVE (NEGATIVE)
[2025-02-06] MEDS: PERCOCET 5MG/325MG TAB PO PRN (19:30)
[2025-02-06] MEDS ORDERED: TOPI-21 PO (21:27)
[2025-02-06] MEDS ORDERED: AMPH1TAB2 PO (21:34)
[2025-02-06] MEDS ORDERED: HOME MED LIST COMPLETE! XX SCH (21:40)
[2025-02-06] MEDS: INSULIN LISPRO (NovoLOG) PER UNIT SC SCH (21:56)
[2025-02-06] MEDS: APIXABAN 5 MG TAB PO SCH (22:03)
[2025-02-06] MEDS: ATORVASTATIN 20 MG TAB PO SCH (22:03)
[2025-02-07 07:04] LABS: PLATELET COUNT, AUTOMATED 230 10^3/uL (150-450)
[2025-02-07 07:42] LABS: CALCIUM LEVEL 8.6 MG/DL (8.5-10.1); CARBON DIOXIDE LEVEL 28 MMOL/L (20-31); CHLORIDE LEVEL 105 MMOL/L (98-107); CHOLESTEROL LEVEL 127 MG/DL (<200); CHOLESTEROL RISK RATIO 3.94 (<5); CREATININE FOR GFR 0.63 MG/DL (0.70-1.30); GLOMERULAR FILTRATION RATE > 90.0 (>60); LDL CHOLESTEROL 34.2 MG/DL (<100); NON-HDL-C 94.8 MG/DL; POTASSIUM SERUM 4.4 MMOL/L (3.5-5.1); SODIUM LEVEL 140 MMOL/L (136-145); TRIGLYCERIDES LEVEL 303 MG/DL (<150)
[2025-02-07 08:41] LABS: ESTIMATED AVERAGE GLUCOSE 154.0 MG/DL (60-110)
[2025-02-07] MEDS: INSULIN LISPRO (NovoLOG) PER UNIT SC SCH (08:49)
[2025-02-07] MEDS ORDERED: HYDR-3713 PO (09:47)
[2025-02-07] MEDS ORDERED: METO1TAB32 PO (09:47)
[2025-02-07 10:39] VITALS: BP 124/75; O2SAT 94
== END 2025-02-07 10:40 | disposition home or self-care (01) ==
LOC: M ED 14:58 → EDBD 14:58 → M ED INP 14:59
PROVIDERS: ADMIT Internal Medicine; ATTEND Internal Medicine
DX: G45.9 Transient cerebral ischemic attack, unspecified (principal); Z91.148 Patient's other noncompliance with medication regimen for other reason; I10 Essential (primary) hypertension; E11.9 Type 2 diabetes mellitus without complications; Z86.73 Personal history of transient ischemic attack (TIA), and cerebral infarction without residual deficits; Z79.01 Long term (current) use of anticoagulants; Z79.84 Long term (current) use of oral hypoglycemic drugs; Z79.899 Other long term (current) drug therapy
CPT/HCPCS: 36415; 70450; 70496; 70498; 70551; 71045; 80047; 80048; 80061; 80076; 80307; 82077; 83036; 85025; 85027; 85610; 85730; 93005; 93041; 94760; 99285; J1815; Q9967

== ENCOUNTER → 2025-02-27 | Outpatient (REF) | payer OTHER ==
[~2025-02-27] MED LIST changes: +AMPH1TAB2 PO; +HYDR-3713 PO; +TOPI-21 PO
== END ==
LOC: M SFHCPLAZ 13:18
PROVIDERS: ATTEND Nurse Practitioner Family
DX: B35.4 Tinea corporis (principal)

== ENCOUNTER 2025-03-02 00:20 | Emergency (ER) | payer OTHER ==
[~2025-03-02] VITALS: Ht 190.5 cm; Wt 97.2 kg
[2025-03-02 00:50] LABS: PLATELET COUNT, AUTOMATED 246 10^3/uL (150-450)
[2025-03-02 01:12] LABS: CALCIUM LEVEL 9.0 MG/DL (8.5-10.1); CARBON DIOXIDE LEVEL 17 MMOL/L (20-31); CHLORIDE LEVEL 102 MMOL/L (98-107); CK-MB VALUE MASS 1.1 NG/ML (<3.6); CREATININE FOR GFR 0.78 MG/DL (0.70-1.30); GLOMERULAR FILTRATION RATE > 90.0 (>60); POTASSIUM SERUM 4.1 MMOL/L (3.5-5.1); SODIUM LEVEL 134 MMOL/L (136-145)
[2025-03-02 01:13] LABS: CPK CREATINE PHOSPHOKINASE 49 U/L (46-171); MB/CK RELATIVE INDEX 2.24 (< OR =4)
[2025-03-02 01:14] LABS: ATYPICAL LYMPH 35 % (0-5); BASOPHILS 1 % (0-1); EOSINOPHILS 1 % (0-3); LYMPHOCYTES 12 % (16-44); MONOCYTES 6 % (0-5); NEUTROPHILS 45 % (28-66)
[2025-03-02 01:15] LABS: PLATELET ESTIMATE NORMAL (NORMAL)
[2025-03-02 03:23] LABS: CK-MB VALUE MASS < 1.0 NG/ML (<3.6)
[2025-03-02 03:33] LABS: CPK CREATINE PHOSPHOKINASE 44 U/L (46-171)
[2025-03-02 03:45] VITALS: TEMP 96.5; O2SAT 94
[2025-03-02 04:00] VITALS: BP 96/61
[2025-03-03] MEDS ORDERED: BUPR1FIL (10:35)
[2025-03-03] MEDS ORDERED: QUET50TA4 (10:35)
[2025-03-03] MEDS ORDERED: ESZO1TAB6 (10:35)
[2025-03-03] MEDS ORDERED: TERB250T91 (10:35)
[2025-03-03] MEDS ORDERED: JARD1TAB3 (10:35)
[2025-03-03] MEDS ORDERED: DOXY-441 PO (11:56)
== END 2025-03-02 04:20 | disposition left against medical advice (07) ==
LOC: EDBD 00:20 → M ED 00:20
DX: G45.9 Transient cerebral ischemic attack, unspecified (principal); R00.0 Tachycardia, unspecified; I45.81 Long QT syndrome; Z79.01 Long term (current) use of anticoagulants; Z79.02 Long term (current) use of antithrombotics/antiplatelets; Z79.899 Other long term (current) drug therapy; Z79.4 Long term (current) use of insulin

== ENCOUNTER 2025-03-03 09:59 | Emergency (ER) | payer OTHER ==
[2025-03-03 10:01] VITALS: TEMP 96.8
[2025-03-03] MEDS ORDERED: ESZO1TAB6 (10:35)
[2025-03-03] MEDS ORDERED: TERB250T91 (10:35)
[2025-03-03] MEDS ORDERED: BUPR1FIL (10:35)
[2025-03-03] MEDS ORDERED: JARD1TAB3 (10:35)
[2025-03-03] MEDS ORDERED: QUET50TA4 (10:35)
[2025-03-03] MEDS: DOXYCYCLINE HYCLATE 100 MG TABLET PO ONE (10:58)
[2025-03-03 11:29] VITALS: BP 111/75; O2SAT 94
[2025-03-03] MEDS ORDERED: DOXY-441 PO (11:56)
== END 2025-03-03 12:08 | disposition home or self-care (01) ==
LOC: M ED 09:59
DX: L08.9 Local infection of the skin and subcutaneous tissue, unspecified (principal); F41.9 Anxiety disorder, unspecified; E11.9 Type 2 diabetes mellitus without complications; I10 Essential (primary) hypertension; F43.10 Post-traumatic stress disorder, unspecified; Z86.79 Personal history of other diseases of the circulatory system; Z87.891 Personal history of nicotine dependence; Z79.01 Long term (current) use of anticoagulants; Z79.899 Other long term (current) drug therapy; Z79.02 Long term (current) use of antithrombotics/antiplatelets; Z79.4 Long term (current) use of insulin